=== PATIENT | female | born 1990 | race Caucasian/White ===

== ENCOUNTER 2018-01-14 22:43 | Inpatient (IN) | payer BC ==
[2018-01-14] MEDS ORDERED: Nalbuphine* 10 MG/ML 1 ML VIAL IV PRN (23:21)
[2018-01-14] MEDS ORDERED: Promethazine INJ(RESTRICTED)* 25 MG/ML 1 ML VIAL IV PRN (23:21)
[2018-01-15 00:12] LABS: ABS Basophils 0 10^3/ul (0-0.2); ABS Eosinophils 0 10^3/ul (0-0.6); ABS Monocytes 0.8 10^3/ul (0-0.8); ABS Neutrophils 8.6 10^3/ul (1.5-7.7); ABS Nucleated RBC 0 10^3/ul; Eosinophil % 0.3 % (0-6); Hematocrit 32 % (35-47); Hemoglobin 10.8 g/dl (12.0-16.0); Lymphocyte % 17.5 % (25-47); Mean Corpuscular HGB Conc 34 g/dl (31-36); Mean Corpuscular Hemoglobin 25 pg (27-31); Mean Corpuscular Volume 75 fL (80-97); Mean Platelet Volume 8.8 fL (7.4-10.4); Nucleated Red Blood Cells % 0; Platelet Count 227 10^3/ul (150-450); Red Blood Count 4.27 10^6/ul (4.00-5.40); Red Cell Distribution Width 16 % (10.5-15); White Blood Count 11.5 10^3/ul (3.5-10.8)
[2018-01-15] MEDS ORDERED: Penicillin G Potassium IV* 5,000,000 UNITS in NS 0.9% 100 ML* 100 ML IVPB ONE (00:20)
[2018-01-15] MEDS: Penicillin G Potassium IV* 2,500,000 UNITS in NS 0.9% 100 ML* 100 ML IVPB SCH ×3 (04:46→13:00)
--- NOTE | 2018-01-15 07:41 | HP ---
General Information - Reason for Visit Contraction through yesterday, increasing in frequency and strength into the evening/night. Small amount of spotting. - General Information Maternal Age: 27 Grav: 1 Para: 0 SAB: 0 IEA: 0 Estimated Due Date: 01/13/18 Determined By: LMP Maternal Blood Type and Rh: O Positive - Results this Serology/RPR Result: Non-Reactive Rubella Result: Immune HBsAg Result: Negative HIV Result: Negative GBS Culture Result: Positive Past Medical History Delivery History: See Records Delivery History Comment: No previous pregnancies Pertinent Past Medical History: Non-Contributory Pertinent Past Surgical History: None Pertinent Family History: Non-Contributory - Antepartal Records Antepartal Records: Reviewed, Uncomplicated Review of Systems Constitutional: Uncomfortable CV Complaint: No Respiratory: Shortness of Breath: No Gastrointestinal: Normal Bowel Movement, Nausea Genitourinary: No Dysuria, No Leaking Fluid, Spotting Musculoskeletal: Contractions Neurological: No Headache, No Visual Changes Movement: Normal Exam Allergies/Adverse Reactions: Allergies No Known Allergies Allergy (Verified 01/15/18 00:02) BP 110/69 T 98.3 HR 70 RR 17 Lab Values - Entire Visit: Laboratory Tests 01/14/18 01/14/18 23:55 23:55 WBC 11.5 H RBC 4.27 Hgb 10.8 L Hct 32 L MCV 75 L MCH 25 L MCHC 34 RDW 16 H Plt Count 227 MPV 8.8 Neut % (Auto) 75.3 Lymph % (Auto) 17.5 L Sharkey % (Auto) 6.6 Eos % (Auto) 0.3 Baso % (Auto) 0.3 Absolute Neuts (auto) 8.6 H Absolute Lymphs (auto) 2.0 Absolute Monos (auto) 0.8 Absolute Eos (auto) 0 Absolute Basos (auto) 0 Absolute Nucleated RBC 0 Nucleated RBC % 0 Blood Type O Positive Antibody Screen Negative - Measurements Height: 5 ft 6 in Weight: 187 lb Weight in lbs: [id number] Body Mass Index (BMI): 30.2 Pre- Weight: 140 lb Weight Gained This : 47 lbs and 0 ozs - Exam Breast: Breast Exam Deferred CVA: No CVA Tenderness Extremities: No Edema Heart: Normal Rhythm/Heart Sounds HEENT: No Significant Findings Lungs: Clear Bilaterally Rectal: Rectal Exam Deferred Reflexes: DTR 2+, - - no clonus Thyroid: - - Assessed WNL @ entry to care - Abdominal Exam Abdomen Exam: Non-Tender, Fundal Height Consistent with Dates - Ultrasound/Biophysical Profile Ultrasound Status: Not Done Targeted Exam Findings See L&D Outpatient Visit Provider Note for Findings: N/A Estimated Weight: 7.5lb Cervical Exam: 3cm, 4cm Effacement: 100% Station: -1 Presenting Part: Vertex Membrane Status: Bulging Bleeding/Discharge: Bloody Show EFM Findings - External Monitor Findings Baseline Heart Rate: 135 External Monitor Findings: Accelerations Present, No Pattern of Variable or Late Decelerations, Variability Moderate Contractions: Irregular, Moderate, 45-90 Seconds Contraction Frequency: Q 4-9 min Assessment/Plan - Assessment IUP @ 40+2 weeks gestation. IBOW. GBS positive. No evidence acidemia. - Obstetrical Risk Factors Obstetrical Risk Factors: GBS Positive - Plan Plan: Admit - Anticipate Vaginal Delivery Plan Comment: Admit to L&D. Patient will desire epidural anesthesia when labor stronger. Encourage position changes, eating as desired. Anticipate SVB. - Date/Time of Admission Date of Admission: 01/15/18 Time of Admission: 07:13
[2018-01-15] MEDS ORDERED: Oxytocin in LR* 20 UNITS/1,000 ML BAG IVPB ONE (11:35)
--- NOTE | 2018-01-15 11:37 | PN ---
Progress Note - Progress Note Date of Service: 01/15/18 Note: S: Pt walked some. Reports UCs closer when up and walking. Spaced out further now that she's resting in bed for EFM. Interested in discussing options. O: BP 122/77 HR 64 T 98.8 RR 16 FHT 135bpm. Moderate variability. +Accels. No decels UCs q 6-9 VE: 4cm/90%/vtx -1 BBOW A: IUP at 40-2/7 with prolonged latent labor No evidence of metabolic acidemia P: Discussed ongoing expectant mgmt vs. active mgmt with IV pitocin and/or amniotomy. PARQ IV pitocin and lengthy review of augmentation vs. induction. All ?s answered. At this time pt consents to trial IV pitocin augmentaion. Will request CEI when ready. Would like to delay amniotomy until labor more active.
[2018-01-15] MEDS ORDERED: Oxytocin in LR* 20 UNITS/1,000 ML BAG IVPB SCH ×2 (12:00→18:00)
[2018-01-15] MEDS ORDERED: OBEPIDURAL* 250 ML EPIDURAL ONE (12:13)
[2018-01-15] MEDS ORDERED: Sodium Citrate/Citric Acid* 15 ML UDC PO PRN (13:02)
[2018-01-15] MEDS ORDERED: Phenylephrine IV* 40 MCG/ML 10 ML SYRINGE IV PUSH PRN ×2 (13:02)
[2018-01-15] MEDS ORDERED: Famotidine TAB* 20 MG PO PRN (13:02)
--- NOTE | 2018-01-15 13:55 | PN ---
Progress Note - Progress Note Date of Service: 01/15/18 Note: S: Pt comfortable s/p epidural placement O: BP 121/69 HR 64 RR 17 T 99.2 FHT 135bpm. Moderate variability. +Accels. Some variable decels with UCs UCs q 4-6 min IV pit was incorrectly running at 4mL/hr instead of 4mu/min. Error was caught and has been corrected. 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 Plan to start at 6mu/min and increase by 2mu/min. Pt comfortable. Enc rest. Close monitoring of maternal/ status
[2018-01-15] MEDS ORDERED: OBEPIDURAL* 250 ML EPIDURAL SCH (14:00)
--- NOTE | 2018-01-15 15:45 | PN ---
Progress Note - Progress Note Date of Service: 01/15/18 Note: S: Called to bedside by RN for review of FHT, variable decels with UCs. Pt reports increased awareness of UCs and pressure but overall still pretty comfortable O: BP 126/73 HR 65 T 98.2 FHT 135bpm. Moderate variability. +Accels. Variable decels with UCs but recovery quickly UCs q 2-3. IV pitocin recently decreased from 6mu/min to 4mu/min VE: 9cm/100%/vtx 0 +Bloody show A: IUP at 40-2/7 in active labor Category II FHT doubt metabolic acidemia GBS +, abx prophylaxis given P: O2 by mask, increased IV fluids, frequent maternal position changes. Close monitoring of materna/ status. Dr. Calero in house and aware of pt presence/ condition. Anticipate trial of pushing soon
[2018-01-15] MEDS ORDERED: Glycerin ADULT SUPP PR PRN (18:00)
[2018-01-15] MEDS ORDERED: Witch Hazel PAD* JAR TOPICAL PRN (18:00)
[2018-01-15] MEDS ORDERED: Acetaminophen TAB* 325 MG PO PRN (18:00)
[2018-01-15] MEDS ORDERED: Dibucaine 1% 28.35 GM TUBE PR PRN (18:00)
--- NOTE | 2018-01-15 18:00 | PROCNOTE ---
[facility] OB: Delivery Note - Delivery A Date of : 01/15/18 Time of : 17:25 [place] Sex: Male Weight at : 7 lb 6 oz Score 1 Minute: 9 Score 5 Minutes: 9 Gestational Age in Weeks and Days at Delivery: 40 Weeks and 2 Days Delivery Method: Spontaneous Vaginal Labor: Spontaneous - with augmentation at 4cm for prolonged latent phase Did Patient attempt ?: N/A, No Previous Amniotic Fluid: Clear Estimated Blood Loss: 350 Anesthesia/Analgesia: IM/IV - for therapeutic rest prior to active phase, CEI for Labor Delivered By: Jesus Benitez - Nursery Level of Nursery: Regular/Bedside - Perineum Perineal Injury: 2nd Degree - repaired with 3-0 Rapide under local infiltration 1% lidocaine and epidural analgesia. Pt tolerated well Perineal Repair: By Delivering Practioner - Events Delivery Events of Note: Pitocin During Labor - Additional Delivery Notes Additional Delivery Notes: Pt admitted in early labor. Received therapeutic rest with modest cervical change. Consented to IV pitocin augmentation which resulted in spontaneous rupture of membranes to clear fluid and expected progression to complete. Category II FHT in active phase with variable decels, rapid return to baseline and variability maintained. Length of labor 19 hours, 31 min. Pushed x 10 min. liveborn male. Slow, controlled delivery of head. ROT. Shoulders followed easily. Nuchal cord x 2 looped off after delivery. vigorous with spontaneous cry. Delivered to maternal abdomen. Cord clamped x 2 and cut by FOB once pulsations ceased. Spontaneous delivery intact placenta. Trailing membranes teased out with a ring forcep. Appeared complete. Fundus firm to massage with IV pitocin infusing. Bleeding minimal. Repair as above. EBL 350mL. At time of note mother and in stable condition. Planning to breast feed.
[2018-01-15] MEDS ORDERED: Simethicone TAB* 80 MG TAB.CHEW PO SCH (21:00)
[2018-01-16] MEDS: Ibuprofen TAB* 600 MG PO PRN ×4 (00:13→21:31)
[2018-01-16 06:36] LABS: ABS Basophils 0 10^3/ul (0-0.2); ABS Eosinophils 0 10^3/ul (0-0.6); ABS Lymphocytes 1.6 10^3/ul (1.0-4.8); ABS Monocytes 0.7 10^3/ul (0-0.8); ABS Neutrophils 8.7 10^3/ul (1.5-7.7); ABS Nucleated RBC 0 10^3/ul; Eosinophil % 0.3 % (0-6); Hematocrit 27 % (35-47); Lymphocyte % 14.4 % (25-47); Mean Corpuscular HGB Conc 33 g/dl (31-36); Mean Corpuscular Hemoglobin 25 pg (27-31); Mean Corpuscular Volume 75 fL (80-97); Mean Platelet Volume 8.2 fL (7.4-10.4); Nucleated Red Blood Cells % 0.1; Platelet Count 169 10^3/ul (150-450); Red Blood Count 3.59 10^6/ul (4.00-5.40); Red Cell Distribution Width 17 % (10.5-15)
[2018-01-16] MEDS: Docusate CAP* 100 MG PO SCH ×3 (09:28→21:31)
[2018-01-16] MEDS: Ferrous Gluconate TAB* 324 MG TAB PO SCH ×2 (09:31→21:30)
[2018-01-17] MEDS: Ibuprofen TAB* 600 MG PO PRN ×3 (04:06→17:59)
[2018-01-17 07:58] VITALS: BP 107/74
[2018-01-17] MEDS: Ferrous Gluconate TAB* 324 MG TAB PO SCH (09:00)
[2018-01-17] MEDS: Docusate CAP* 100 MG PO SCH ×4 (09:00→16:21)
== END 2018-01-17 19:25 | disposition home or self-care (01) | DRG 560 ==
LOC: MCHOBOUT 22:43 → MCHOB 01-15 07:13
PROVIDERS: ADMIT Midwife; ATTEND Midwife
PROC: 10E0XZZ Delivery of Products of Conception, External Approach (ICD-10-PCS; principal; 2018-01-15)
PROC: 0KQM0ZZ Repair Perineum Muscle, Open Approach (ICD-10-PCS; 2018-01-15)
DX: O48.0 Post-term pregnancy (principal); Z37.0 Single live birth; O99.824 Streptococcus B carrier state complicating childbirth; O63.0 Prolonged first stage (of labor); O70.1 Second degree perineal laceration during delivery; O69.81X0 Labor and delivery complicated by cord around neck, without compression, not applicable or unspecified; O76 Abnormality in fetal heart rate and rhythm complicating labor and delivery; O90.81 Anemia of the puerperium; D64.9 Anemia, unspecified; Z3A.40 40 weeks gestation of pregnancy
CPT/HCPCS: 36415; 85025; 86850; 86900; 86901; A9270-GY; J2300; J2540; J2550